=== PATIENT | female | born 1950 | race Caucasian/White ===

== ENCOUNTER 2022-10-25 21:11 | Emergency (ER) | payer OTHER, MEDICARE, BC, SELFPAY ==
[2022-10-25] VITALS (10 sets, daily range): BP systolic 110–137; BP diastolic 57–68; PULSE 74–93; RESP 10–16; TEMP 36.5; O2SAT 96–99; BMI 38.6
--- NOTE | 2022-10-25 21:16 | DI.RAD.S_ITS ---
PROCEDURE: XR CHEST 1V INDICATIONS: chest pain TECHNIQUE: One view of the chest was acquired. COMPARISON: None. FINDINGS: Surgical changes and devices: None. Lungs and pleura: Lungs are clear. No pleural effusions or pneumothorax. Mediastinum: Mediastinal contours appear normal. Heart size is normal. Bones and chest wall: No suspicious bony lesions. Overlying soft tissues appear unremarkable. IMPRESSION: No acute pulmonary process. Dictated by: Kaykay Adair M.D. on 10/25/2022 at 22:19 Approved by: Kaykay Adair M.D. on 10/25/2022 at 22:19
--- NOTE | 2022-10-25 21:33 | PC.NURSE ---
Pt denies chest pain, but reports rapid heart beat and some SOB. Pt took two doses of her SL nitro prior to coming to ED. Pt also reports hx of Aflutter. Provider aware.
[2022-10-25 21:34] LABS: Add Manual Diff / Slide Review NO; Basophils Absolute Auto 200 /uL (0-100); Basophils Percent Auto 1.5 % (0-2); Eosinophils Absolute Auto 300 /uL (0-450); Eosinophils Percent Auto 2.3 % (2-4); Hematocrit 40.9 % (36-46); Hemoglobin 13.8 g/dL (12.0-16.0); Lymphocytes Absolute Auto 2600 /uL (1100-4500); Lymphocytes Percent Auto 20.7 % (25-40); Mean Corpuscular HGB Conc 33.7 % (30-36); Mean Corpuscular Hemoglobin 28.6 PG (26-34); Mean Corpuscular Volume 84.9 fL (80-100); Monocytes Absolute Auto 800 /uL (0-900); Monocytes Percent Auto 6.3 % (3-14); Neutrophils Absolute Auto 8800 /uL (1500-7000); Neutrophils Percent Auto 69.2 % (50-75); Platelet Count 244 X10^3/uL (150-400); Red Blood Cell Count 4.82 X10^6/uL (4.0-5.2); Red Cell Distribution Width 13.5 % (11.6-14.8); White Blood Cell Count 12.7 X10^3/uL (4.5-11.0)
--- NOTE | 2022-10-25 21:35 | ED.CHESTPAIN ---
HPI - Chest Pain General Chief Complaint: Chest Pain Stated Complaint: HEART RACY, T-2H, SOB, Time Seen by Provider: 10/25/22 21:13 Source: patient Mode of arrival: Family Vehicle Limitations: no limitations History of Present Illness HPI narrative: Patient is a 71-year-old female. Does have a history of hypertension. Also has a history of atrial flutter. She is not on anticoagulation. She states that approximately 2 hours ago she had a fairly sudden onset of what she states is feel like her heart is beating fast. She was also short of breath at the time. She was not having any chest pain. She was home with her daughter. Her daughter took her pulse and it was elevated. Patient does have prescription for sublingual nitro but she states she was given this many years ago. She is never had a cardiac catheterization. No prior history of coronary artery disease. She is unsure as to why she was given the nitroglycerin. States she took 2 doses of this and it was and a successful at resolving any of her symptoms. In her symptoms did not go away was when they decided to come to the emergency department for further evaluation. Has time my evaluation she states that her symptoms have improved. She was no longer having the fast heart rate. She did not feel completely normal. Her shortness of breath has improved. Related Data Home Medications Medication Instructions Recorded Confirmed atenolol 25 mg tablet 25 mg PO DAILY 06/14/21 06/14/21 levothyroxine 13 mcg capsule 13 mcg PO DAILY 06/14/21 06/14/21 lovastatin 10 mg tablet 10 mg PO DAILY 06/14/21 06/14/21 Allergies Allergy/AdvReac Type Severity Reaction Status Date / Time No Known Drug Allergies Allergy Verified 10/25/22 21:21 Review of Systems Constitutional Constitutional: Reports system reviewed and no additional complaints, except as documented Cardiovascular Cardiovascular: Reports system reviewed and no additional complaints, except as documented Respiratory Respiratory: Reports system reviewed and no additional complaints, except as documented Gastrointestinal Gastrointestinal: Reports system reviewed and no additional complaints, except as documented Musculoskeletal Musculoskeletal: Reports system reviewed and no additional complaints, except as documented Integumentary/Breasts Skin/Breast: Reports system reviewed and no additional complaints, except as documented Neurologic Neurologic: Reports system reviewed and no additional complaints, except as documented Hematologic/Lymphatic On Anticoagulants: No Patient History Social History Smoking Status: Former smoker Smoking Status: Former smoker tobacco type: cigarettes alcohol intake frequency: 0-2 drinks per day Substance Use Type: does not use Exam Initial Vital Signs Initial Vital Signs: Vital Signs Temperature 97.7 F 10/25/22 21:16 Pulse Rate 92 H 10/25/22 21:16 Respiratory Rate 16 10/25/22 21:16 Blood Pressure 127/63 10/25/22 21:16 Pulse Oximetry 97 10/25/22 21:16 Oxygen Delivery Method Room Air 10/25/22 21:16 Const General: cooperative, comfortable and No ill appearing HENMT Head: normal to inspection and normocephalic Resp Effort & Inspection: normal respiratory effort Auscultation: clear to auscultation bilaterally Cardio Rate: regular rate Rhythm: regular rhythm GI Inspection: normal to inspection Skin General: no rashes or lesions noted Neuro General: patient alert, patient awake and moves all extremities Extrem General: normal to inspection and capillary refill normal Course Orders Ordered: ED Orders 10/25/22 21:16 XR chest 1V Stat EKG-12 Lead Stat 10/25/22 21:25 Complete Blood Count AUTO DIFF Stat PTT Partial Thromboplastin Rafael Stat Prothrombin Time INR Stat 10/25/22 22:10 Comprehensive Metabolic Panel Stat Lipase Stat Magnesium Stat Troponin & CK Cardiac Panel Stat 10/25/22 22:55 CMP [Comprehensive Metabolic Panel] Stat MAG [Magnesium] Stat Discontinued Medications Aspirin (Aspirin 81 Mg Chew Tab) 324 mg PO NOW ONE Stop: 10/25/22 21:17 Last Admin: 10/25/22 21:35 Dose: Not Given Documented By: SB Vital Signs Vital signs: Vital Signs - 8 hr 10/25/22 21:16 10/25/22 21:23 10/25/22 21:24 Temperature 97.7 F Pulse Rate 92 H 93 H 92 H Respiratory Rate 16 14 15 Blood Pressure 127/63 Pulse Oximetry 97 Oxygen Delivery Method Room Air 10/25/22 21:24 10/25/22 21:30 10/25/22 21:30 Temperature Pulse Rate 92 H Respiratory Rate 10 L Blood Pressure 127/63 116/57 L Pulse Oximetry 97 Oxygen Delivery Method 10/25/22 21:35 10/25/22 21:35 10/25/22 22:00 Temperature Pulse Rate 91 H 84 Respiratory Rate 15 14 Blood Pressure 122/60 Pulse Oximetry 98 96 Oxygen Delivery Method Room Air 10/25/22 22:34 10/25/22 22:36 10/25/22 22:36 Temperature Pulse Rate 77 81 Respiratory Rate Blood Pressure 137/68 Pulse Oximetry 99 98 Oxygen Delivery Method 10/25/22 23:00 10/25/22 23:00 10/25/22 23:30 Temperature Pulse Rate 74 74 Respiratory Rate Blood Pressure 128/59 L 110/57 L Pulse Oximetry 97 96 Oxygen Delivery Method Room Air 10/25/22 23:30 Temperature Pulse Rate 74 Respiratory Rate Blood Pressure Pulse Oximetry 97 Oxygen Delivery Method MDM - Chest Pain Lab Data Attestation: I reviewed the patient's lab results. 10/25/22 21:25 10/25/22 22:55 Labs: Lab Results 10/25/22 10/25/22 10/25/22 Range/Units 21:25 21:25 22:10 WBC 12.7 H (4.5-11.0) X10^3/uL RBC 4.82 (4.0-5.2) X10^6/uL Hgb 13.8 (12.0-16.0) g/dL Hct 40.9 (36-46) % MCV 84.9 (80-100) fL MCH 28.6 (26-34) PG MCHC 33.7 (30-36) % RDW 13.5 (11.6-14.8) % Plt Count 244 (150-400) X10^3/uL Neut % (Auto) 69.2 (50-75) % Lymph % (Auto) 20.7 L (25-40) % [place] % (Auto) 6.3 (3-14) % Eos % (Auto) 2.3 (2-4) % Baso % (Auto) 1.5 (0-2) % Neut # (Auto) 8800 H (5381-3922) /uL Lymph # (Auto) 2600 (7064-8183) /uL [place] # (Auto) 800 (0-900) /uL Eos # (Auto) 300 (0-450) /uL Baso # (Auto) 200 H (0-100) /uL PT 12.1 (10.1-12.7) SECONDS INR 1.1 (0.9-1.3) APTT 31 (26-36) SECONDS Sodium 138 (137-145) mmol/L Potassium 4.1 (3.4-5.1) mmol/L Chloride 104 (98-107) mmol/L Carbon Dioxide 28 (22-32) mmol/L BUN 18 H (7-17) mg/dL Creatinine 0.57 (0.52-1.04) mg/dL Estimated GFR > 60 (>60) mL/min BUN/Creatinine Ratio 31.6 H (6-22) Glucose 219 H (80-110) mg/dL Calcium 9.4 (8.4-10.2) mg/dL Magnesium 1.8 (1.6-2.3) mg/dL Total Bilirubin 0.7 (0.2-1.3) mg/dL AST 40 H (14-36) IU/L ALT 36 H (<35) IU/L Alkaline Phosphatase 65 (38-126) U/L Total Creatine Kinase 210 H (30-135) U/L Troponin I < 0.012 (0.01-0.034) ng/mL Total Protein 7.2 (6.3-8.2) g/dL Albumin 4.0 (3.5-5.0) g/dL Globulin 3.2 (1.7-4.1) g/dL Albumin/Globulin Ratio 1.3 (1.0-2.8) Lipase 80 (23-300) U/L // Range/Units 22:55 WBC (4.5-11.0) X10^3/uL RBC (4.0-5.2) X10^6/uL Hgb (12.0-16.0) g/dL Hct (36-46) % MCV (80-100) fL MCH (26-34) PG MCHC (30-36) % RDW (11.6-14.8) % Plt Count (150-400) X10^3/uL Neut % (Auto) (50-75) % Lymph % (Auto) (25-40) % [place] % (Auto) (3-14) % Eos % (Auto) (2-4) % Baso % (Auto) (0-2) % Neut # (Auto) (4584-3923) /uL Lymph # (Auto) (5671-9373) /uL [place] # (Auto) (0-900) /uL Eos # (Auto) (0-450) /uL Baso # (Auto) (0-100) /uL PT (10.1-12.7) SECONDS INR (0.9-1.3) APTT (26-36) SECONDS Sodium 138 (137-145) mmol/L Potassium 3.8 (3.4-5.1) mmol/L Chloride 105 (98-107) mmol/L Carbon Dioxide 28 (22-32) mmol/L BUN 19 H (7-17) mg/dL Creatinine 0.50 L (0.52-1.04) mg/dL Estimated GFR > 60 (>60) mL/min BUN/Creatinine Ratio 38.0 H (6-22) Glucose 188 H (80-110) mg/dL Calcium 9.4 (8.4-10.2) mg/dL Magnesium 1.8 (1.6-2.3) mg/dL Total Bilirubin 0.6 (0.2-1.3) mg/dL AST 37 H (14-36) IU/L ALT 35 H (<35) IU/L Alkaline Phosphatase 67 (38-126) U/L Total Creatine Kinase (30-135) U/L Troponin I (0.01-0.034) ng/mL Total Protein 6.9 (6.3-8.2) g/dL Albumin 3.8 (3.5-5.0) g/dL Globulin 3.1 (1.7-4.1) g/dL Albumin/Globulin Ratio 1.2 (1.0-2.8) Lipase (23-300) U/L Imaging Data Chest x-ray: Radiologist's Impression: PROCEDURE:? XR CHEST 1V ? INDICATIONS:? chest pain ? TECHNIQUE:? One view of the chest was acquired.? ? COMPARISON:? None. ? FINDINGS:? ? Surgical changes and devices:? None.? ? Lungs and pleura:? Lungs are clear.? No pleural effusions or pneumothorax.? ? Mediastinum:? Mediastinal contours appear normal.? Heart size is normal.? ? Bones and chest wall:? No suspicious bony lesions.? Overlying soft tissues appear unremarkable.? ? IMPRESSION:? No acute pulmonary process. ECG Data Attestation: I personally reviewed and interpreted this ECG as follows: Interpretation: Sinus rhythm Ventricular rate of 90 Normal axis Normal QRS Nonspecific ST T wave changes MDM Narrative Medical decision making narrative: Patient did not have chest pain. Her chest x-ray is unremarkable. She does have nonspecific changes on her EKG but she is in sinus rhythm. Her troponin is negative. Electrolytes are relatively unremarkable. During time here in the emergency department her heart rate improved to a sinus rhythm in the 70s. She states that her symptoms have now all completely resolved. I suspect that she did have a transient episode of either atrial fibrillation or atrial flutter. She does have a history of atrial flutter. This has happened periodically over the past couple years. She is never had an ablation. She is not on anticoagulation. We will discharge patient home. Will have her contact her primary doctor to discuss further workup to include potentially having a Holter monitor. Will have her continue all of her medications as directed. She was given return precautions. She expressed understanding and agreement. Discharge Plan Departure Patient Disposition: Home Clinical Impression: Palpitations Instructions: DI for Arrhythmias Activity Restrictions/Additional Instructions: I do recommend that you continue to take all of your medications as directed. When you return home I recommend that you talk with your primary doctor about the indications for referral to have a Holter monitor. Return to the emergency department for new or worsening symptoms. Prescriptions: No Action atenolol 25 mg tablet 25 mg PO DAILY lovastatin 10 mg tablet 10 mg PO DAILY levothyroxine 13 mcg capsule 13 mcg PO DAILY Referrals: Misbart,MD Devi [Primary Care Provider] - Stand Alone Forms: Patient Portal/API
[2022-10-25 21:39] LABS: INR 1.1 (0.9-1.3); Prothrombin Time 12.1 SECONDS (10.1-12.7)
[2022-10-25 21:42] LABS: PTT Partial Thromboplastin Tim 31 SECONDS (26-36)
[2022-10-25 22:32] LABS: Alanine Aminotransferase 36 IU/L (<35); Albumin Globulin Ratio 1.3 (1.0-2.8); BUN Creatinine Ratio 31.6 (6-22); Bilirubin Total 0.7 mg/dL (0.2-1.3); Blood Urea Nitrogen 18 mg/dL (7-17); Calcium 9.4 mg/dL (8.4-10.2); Carbon Dioxide 28 mmol/L (22-32); Chloride 104 mmol/L (98-107); Creatine Kinase 210 U/L (30-135); Estimated Glomerular Filt Rate > 60 mL/min (>60); Globulin 3.2 g/dL (1.7-4.1); Glucose 219 mg/dL (80-110); Lipase 80 U/L (23-300); Sodium 138 mmol/L (137-145); Total Protein 7.2 g/dL (6.3-8.2)
[2022-10-25 22:33] LABS: HEMOLYSIS 54 (0-50)
[2022-10-25 22:35] LABS: Aspartate Aminotransferase 40 IU/L (14-36); Magnesium 1.8 mg/dL (1.6-2.3); Potassium 4.1 mmol/L (3.4-5.1)
[2022-10-25 22:36] LABS: Alkaline Phosphatase 65 U/L (38-126)
[2022-10-25 22:43] LABS: Troponin I < 0.012 ng/mL (0.01-0.034)
--- NOTE | 2022-10-25 23:04 | PC.NURSE ---
Per laborer hoisting CMP drawn at 2210 is slightly hemolized. Provider made aware and new orders for new CMP and mag.
[2022-10-25 23:13] LABS: Alanine Aminotransferase 35 IU/L (<35); Albumin 3.8 g/dL (3.5-5.0); Albumin Globulin Ratio 1.2 (1.0-2.8); Alkaline Phosphatase 67 U/L (38-126); Aspartate Aminotransferase 37 IU/L (14-36); Bilirubin Total 0.6 mg/dL (0.2-1.3); Blood Urea Nitrogen 19 mg/dL (7-17); Calcium 9.4 mg/dL (8.4-10.2); Carbon Dioxide 28 mmol/L (22-32); Chloride 105 mmol/L (98-107); Estimated Glomerular Filt Rate > 60 mL/min (>60); Globulin 3.1 g/dL (1.7-4.1); Glucose 188 mg/dL (80-110); HEMOLYSIS 30 (0-50); Magnesium 1.8 mg/dL (1.6-2.3); Potassium 3.8 mmol/L (3.4-5.1); Sodium 138 mmol/L (137-145); Total Protein 6.9 g/dL (6.3-8.2)
== END 2022-10-25 23:53 | disposition home or self-care (01) ==
PROVIDERS: Emergency Provider Emergency Medicine
DX: R00.2 Palpitations (principal)
CPT/HCPCS: 36415; 71045; 80053; 82550; 83690; 83735; 84484; 85025; 85610; 85730; 93005; 93010; 99284